=== PATIENT | male | born 1955 | race Caucasian/White ===

== ENCOUNTER 2018-09-21 23:34 | Emergency (ER) | payer OTHER ==
[2018-09-22] MEDS: DOXYCYCLINE 100 MG TAB PO (01:10)
== END 2018-09-22 01:24 | disposition home or self-care (01) ==
LOC: E/R 23:34
DX: J18.1 Lobar pneumonia, unspecified organism (principal); F17.210 Nicotine dependence, cigarettes, uncomplicated
CPT/HCPCS: 71045; 99283-25